=== PATIENT | male | born 1995 | race Native Hawaiian/Other Pacific Islander ===

== ENCOUNTER 2022-07-27 10:07 | Outpatient (RCR) | payer OTHER, SELFPAY ==
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
== END 2022-08-03 10:16 | disposition home or self-care (01) ==
LOC: OT 10:07
PROVIDERS: Absent Provider Family Medicine; Family Provider Family Medicine; PCP Family Medicine; Referring Provider Family Medicine; Visit Provider Family Medicine
DX: S06.9X0A Unspecified intracranial injury without loss of consciousness, initial encounter (principal); M54.2 Cervicalgia
CPT/HCPCS: 97165

== ENCOUNTER 2022-11-02 14:45 | Outpatient (RCR) | payer OTHER, SELFPAY ==
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
--- NOTE | 2022-09-06 17:44 | PT.OPPOC ---
Physical, Occupational & Speech Therapy At [facility] Current Diagnoses Labyrinthine dysfunction, unspecified ear (09/06/22) Cervicalgia (09/06/22) Unspecified intracranial injury without loss of consciousness, initial encounter (09/06/22) Visit Care Team Role Provider Type Earl Wilson DO Family Provider Non-Staff Primary Care Provider Specialty: Family Practice Address: [place], [address] Email: DOMINOG Maddox Attending Provider Non-Staff Referring Provider Specialty: [facility] Address: [facility] [address], [place], [address] Email: Plan Of Care PT-OP-T Assessment and Plan Start: 09/06/22 17:20 Freq: Status: Active Protocol: Document 09/06/22 12:45 DCW (Rec: 09/06/22 17:44 DCW [id number]) Physical Therapy Assessment Rehab Potential Rehabilitation Potential Good Evaluation Complexity Number of Personal Factors/Comorbidities 3 or More Number of Body Systems Impaired 3 Clinical Presentation at Evaluation Unstable Impairments Impairments Balance,Functional Activities, Functional Mobility,Pain, Vestibular Goals Two Impairment Pt experiences frequent dizziness and visual difficulty with associated headaches Decorating Instructor Goal (LTG) Pt to report a decrease in frequency of dizziness and visual disturbances by at least 50% over a period of two weeks LTG Duration 11/06/22 One Impairment Pt does not have an appropriate home exercise program Short Term Goal (STG) Pt to be independent and compliant with an appropriate HEP STG Duration 10/06/22 Assessment Summary Assessment Pt presents with signs and symptoms consistent with 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 Pt demonstrates positive right thrust and heave tests, a significant increase in instability in vestibular- dependent positions V and on the CTSIB, as well as difficulty with convergence ( diplopia at 10 cm, delay with changing field of vision during Antonio String Testing). Pt should benefit from skilled vestibular rehabilitation focusing on habituation/ adaptation exercises, VOR challenges, decreasing balance /vestibular-related anxiety, and oculomotor strengthening exercises. Pt currently already undergoing PT at a different clinic for cervical dysfunction and neck/shoulder pain, as well as return to usual functional activities. Pt therefore may benefit from a less frequent schedule for vestibular therapy, focusing more on implementing and adjusting HEP as needed. Physical Therapy Plan Frequency and Duration Frequency of Treatment Every Other Week Plan of Care Start Date 09/06/22 Plan of Care End Date 11/06/22 Therapeutic Interventions Therapeutic Interventions Balance Training,Canalithic Repositioning,Coordination Training,Home Exercise Program ,Neuromuscular Re-education, Patient/Caregiver Education, Self-Care/Home Management, Therapeutic Exercises, Vestibular Rehabilitation Next Visit Focus/Plan Next Note Type Treatment Note Next Visit Plan VOR, adaptation/habituation exercises, vestibular rehabilitation Plan of Care Dates Plan of Care Start Date 09/06/22 Plan of Care End Date 11/06/22 Electronically Signed by: Nile Wilson, PT 09/06/22 2115 If you are in agreement with this Plan of Care, please return a signed and dated copy. I have reviewed this Plan of Care and certify that the skilled therapy services above are required to meet the patient?s needs. Physician Signature Date Printed Name and Credentials Clinical Instructor Signature Printed Name and Credentials
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
== END 2022-11-06 16:20 | disposition home or self-care (01) ==
LOC: PHYS 14:45
PROVIDERS: Family Provider Family Medicine; PCP Family Medicine; Referring Provider Nurse Practitioner Family; Visit Provider Nurse Practitioner Family
DX: S06.9X0D Unspecified intracranial injury without loss of consciousness, subsequent encounter (principal); M54.2 Cervicalgia; H83.2X9 Labyrinthine dysfunction, unspecified ear; S06.9X0A Unspecified intracranial injury without loss of consciousness, initial encounter
CPT/HCPCS: 97112; 97162

== ENCOUNTER → 2025-02-05 09:14 | Outpatient (CLI) | payer OTHER, SELFPAY ==
--- NOTE | 2025-02-05 09:19 | DI.ECHO.S_ITS ---
[facility] : : [id number] : [place] : : [id number] : : Phone: [phone] Echocardiogram Report + + :Name: MALLORY CARNEY Study Date: 02/05/2025 Height: 70 in : :[facility] ReadingLocation: Weight: 197 lb : : Gender: Male BSA: 2.1 m2 : :: 03/05/1994 Age: 30 yrs BP: 118/81 mmHg: :Reason For Study: SHORTNESS OF BREATH : :Ordering Physician: NEIL, : :FERMIN Performed By: Felipe Henderson : :Referring: FERMIN TREJO : + + Interpretation Summary The left ventricle is normal in size. The ejection fraction is estimated to be 50-55%. The right ventricle is normal in size and function. No significant valvular pathology seen. The IVC is of normal diameter and collapses greater than 50% with a sniff. This suggests a low right atrial pressure of 3 mm Hg. Procedure: A two-dimensional transthoracic echocardiogram with color flow and Doppler was performed. The study quality was technically good. There is no prior echocardiogram noted for this patient. The patient was in normal sinus rhythm during the exam. Left Ventricle: The left ventricle is normal in size. There is normal left ventricular wall thickness. There is no ventricular septal defect visualized. There is no thrombus. The ejection fraction is estimated to be 50-55%. There are no focal wall motion abnormalities. MV E/A: 1.4. Right Ventricle: The right ventricle is normal in size and function. Atria: The left atrial size is normal. Right atrial size is normal. There is no Doppler evidence for an interatrial shunt. Mitral Valve: The mitral valve leaflets appear normal. There is no evidence of stenosis, fluttering, or prolapse. There is no mitral valve stenosis. There is no mitral regurgitation noted. Aortic Valve: The aortic valve is trileaflet. The aortic valve opens well. There is no aortic valve stenosis. No aortic regurgitation is present. Tricuspid Valve: The tricuspid valve leaflets are thin and pliable. There is trace tricuspid regurgitation. Pulmonic Valve: The pulmonic valve leaflets are thin and pliable; valve motion is normal. There is trace pulmonic regurgitation. Great Vessels: The aortic root is normal size. The dimensions of the ascending aorta are normal. The pulmonary artery is normal size. The IVC is of normal diameter and collapses greater than 50% with a sniff. This suggests a low right atrial pressure of 3 mm Hg. Pericardium/ Pleura There is no pericardial effusion. There is no pleural effusion. MMode/2D Measurements & Calculations LVIDd: 5.1 cm LVOT diam: 2.2 cm LVIDs: 3.5 cm Ao root diam: 3.6 cm FS: 31.4 % asc Aorta Diam: 2.5 cm EPSS: 0.89 cm Ao Arch Diam (Prox Trans): 1.7 cm IVSd: 0.76 cm LVPWd: 0.72 cm LV andrea. diameter/BSA (cm/m^2): 2.5 LV sys. diameter/BSA (cm/m^2): 1.7 LA A2 area: 11.3 cm2 RA long axis: 4.5 cm LA A4 area: 11.9 cm2 RA area: 16.5 cm2 LA length (vol): 4.1 cm RA vol: 51.1 ml LA vol: 28.1 ml RA : 24.6 ml/m2 LA vol index: 13.6 ml/m2 IVC diam: 1.3 cm RVD1 (basal): 3.3 cm RVD2 (mid): 2.7 cm TAPSE: 2.2 cm Doppler Measurements & Calculations Ao V2 max: 100.5 cm/sec LVOT Max Oniel: 79.7 cm/sec Ao V2 mean: 73.4 cm/sec LV V1 max P.5 mmHg Ao max P.0 mmHg LV V1 VTI: 13.4 cm Ao mean P.4 mmHg KASSANDRA(I,D): 2.8 cm2 Ao V2 VTI: 17.9 cm KASSANDRA(V,D): 3.0 cm2 sev ratio: 0.75 KASSANDRA indexed to BSA (cm^2/m^2): 1.4 MV E max oniel: 60.3 cm/sec TR max oniel: 238.9 cm/sec MV A max oniel: 44.4 cm/sec TR max P.8 mmHg MV E/A: 1.4 PA V2 max: 115.6 cm/sec MV dec time: 0.18 sec PA V2 mean: 80.7 cm/sec PA mean P.0 mmHg PA pr(Accel): 53.3 mmHg SV(GOMEZ): 50.5 ml Reading Physician:03:13 PM
--- NOTE | 2025-02-05 09:20 | DI.RAD.S_ITS ---
PROCEDURE: XR CHEST 2V INDICATIONS: Shortness of breath TECHNIQUE: 2 views of the chest were acquired. COMPARISON: None. FINDINGS: Mild bilateral perihilar and lower lobe peribronchial thickening, some of which may be related expiratory result; however, bronchitis, viral infection, asthma or other process should be considered. Cardiopericardial silhouette and pulmonary vasculature within normal limits. No pneumothorax, no pleural effusion, no lobar consolidation. IMPRESSION: Peribronchial thickening as discussed above. If symptoms persist or worsen, or there is high clinical suspicion of thoracic abnormality, CT chest could be performed. Approved by: Navjot Mcclain M.D. on 02/09/2025 at 10:50
== END ==
PROVIDERS: PCP Nurse Practitioner Family; Referring Provider Chiropractor; Visit Provider Chiropractor
DX: I20.9 Angina pectoris, unspecified (principal); R06.02 Shortness of breath
CPT/HCPCS: 71046; 93306

== ENCOUNTER → 2025-02-05 10:46 | Outpatient (CLI) | payer OTHER, SELFPAY | PROVIDERS: Family Provider Family Medicine; PCP Nurse Practitioner Family; Referring Provider Chiropractor; Visit Provider Chiropractor | DX: J45.909 Unspecified asthma, uncomplicated (principal); I20.9 Angina pectoris, unspecified; R06.02 Shortness of breath | CPT/HCPCS: 71046; 93306; 94060 ==